=== PATIENT | male | born 1970 | race Hispanic/Latino ===

== ENCOUNTER 2022-05-23 16:08 | Outpatient (CLI) | payer BC | END 2022-05-23 16:09 | disposition home or self-care (01) | LOC: BICRAD 16:08 | PROVIDERS: ATTEND Family Medicine | DX: Z01.818 Encounter for other preprocedural examination (principal) | CPT/HCPCS: 71046 ==

== ENCOUNTER 2022-05-30 08:48 | Outpatient (CLI) | payer SELFPAY | END 2022-05-30 08:49 | disposition home or self-care (01) | LOC: LABBT 08:48 | PROVIDERS: ATTEND Surgery | DX: E66.01 Morbid (severe) obesity due to excess calories (principal); Z20.822 Contact with and (suspected) exposure to COVID-19 | CPT/HCPCS: 87811 ==

== ENCOUNTER 2022-05-30 09:15 | Inpatient (IN) | payer SELFPAY ==
[2022-06-04] MEDS ORDERED: Heparin 5,000 UNITS/ML VIAL ONE (06:32)
[2022-06-04] MEDS ORDERED: Bupivacaine/Epinephrine 0.25% 30 ML VIAL ONE (06:49)
[2022-06-04] MEDS ORDERED: Dexmedetomidine 200 MCG/2 ML VIAL ONE (07:02)
[2022-06-04] MEDS ORDERED: fentaNYL Citrate/PF 100 MCG/2 ML SYRINGE ONE (07:02)
[2022-06-04] MEDS ORDERED: Rocuronium Bromide 10 MG/ML (10ML VIAL) ONE (07:20)
[2022-06-04] MEDS ORDERED: Ondansetron PF 4 MG/2 ML Vial ONE (07:20)
[2022-06-04] MEDS ORDERED: Dexamethasone 20 MG/5 ML VIAL ONE (07:20)
[2022-06-04] MEDS ORDERED: PROPOFOL 200 MG/20 ML VIAL ONE (07:20)
[2022-06-04] MEDS ORDERED: CEFAZOLIN 2 GM VIAL ONE (07:24)
[2022-06-04] MEDS ORDERED: Sodium Chloride 0.9% 100 ML ONE (07:24)
[2022-06-04] MEDS ORDERED: SUGAMMADEX SODIUM 200 MG/2 ML VIAL ONE (08:15)
[2022-06-04] MEDS ORDERED: Dextrose 5% in Water 1,000 ML IV PRN (09:04)
[2022-06-04] MEDS ORDERED: diphenhydrAMINE 50 MG/ML VIAL IVP PRN ×2 (09:04→09:19)
[2022-06-04] MEDS ORDERED: Dextrose 50% Abboject 50 ML SYRINGE SLOW IVP PRN (09:04)
[2022-06-04] MEDS ORDERED: Ondansetron PF 4 MG/2 ML Vial IVP PRN ×2 (09:04→09:19)
[2022-06-04] MEDS ORDERED: hydrALAZINE 20 MG/ML VIAL SLOW IVP PRN (09:04)
[2022-06-04] MEDS ORDERED: Promethazine HCl 25 MG/ML VIAL IM PRN ×3 (09:04→09:19)
[2022-06-04] MEDS ORDERED: diphenhydrAMINE 50 MG/ML VIAL IM PRN (09:19)
[2022-06-04] MEDS ORDERED: Naloxone HCl 0.4 mg/ml Vial IV PRN (09:19)
[2022-06-04] MEDS ORDERED: Ondansetron HCl/PF 4 MG/2 ML Vial IVP PRN (09:19)
[2022-06-04] MEDS ORDERED: Promethazine HCl 25 MG/ML VIAL IVPB PRN (09:19)
[2022-06-04] MEDS ORDERED: diphenhydrAMINE 25 MG CAP PO PRN (09:19)
[2022-06-04] MEDS ORDERED: Meperidine HCl/PF 25 MG/ML VIAL SLOW IVP PRN (09:19)
[2022-06-04] MEDS ORDERED: Zolpidem Tartrate 5 MG TAB PO PRN (09:19)
[2022-06-04] MEDS ORDERED: fentaNYL Citrate/PF 2,000 MCG in Sodium Chloride 0.9% 60 ML IV PRN (09:19)
[2022-06-04] MEDS ORDERED: Communication Order-Pharmacy FS SCH (09:30)
[2022-06-04] MEDS ORDERED: Pantoprazole 40 MG VIAL IVP SCH (09:45)
[2022-06-04] MEDS: D5 1/2 NS w/20 mEq KCL 1,000 ML IV SCH ×3 (11:45→23:23)
[2022-06-04 17:16] VITALS: BMI 40.1
[2022-06-05] MEDS: Hydrocodone-Acetamin 15 ML UDCUP PO PRN ×2 (05:48→10:10)
[2022-06-05 05:56] LABS: #Lymphocytes 1.8 thou/uL (1.20-3.40); #Neutrophils 7.1 thou/uL (1.40-6.50); %Basophils 0.1 % (0.0-1.0); %Eosinophils 0.4 % (0.0-10.0); %Monocytes 9.8 % (0.0-10.0); %Neutrophils 71.8 % (42.0-75.0); Hemoglobin 14.9 g/dL (14.0-18.0); Mean Corpuscular HGB CONC 34.6 g/dL (32.0-36.0); Mean Corpuscular Hemoglobin 31.8 pg (27.0-31.0); Mean Platelet Volume 7.8 fL (7.4-10.4); Platelet Count 206 thou/uL (130-400); RBC Distribution Width 11.6 % (11.5-14.5); Red Blood Cell (RBC) Count 4.69 mill/uL (4.70-6.10); White Blood Cell (WBC) Count 9.9 thou/uL (4.8-10.8)
[2022-06-05 06:18] LABS: Anion Gap 15 mmol/L (10-20); BUN (Urea Nitrogen) 6 mg/dL (8.4-25.7); Calc. Creatinine Clearance 179 mL/min (70-130); Calcium 8.7 mg/dL (7.8-10.44); Carbon Dioxide 21 mmol/L (22-29); Chloride 104 mmol/L (98-107); Estimated GFR 105; Glucose 113 mg/dL (70-105); Potassium 3.9 mmol/L (3.5-5.1); Sodium 136 mmol/L (136-145)
[2022-06-05 07:57] VITALS: BP 147/87; TEMP 98.1
[2022-06-05] MEDS: D5 1/2 NS w/20 mEq KCL 1,000 ML IV SCH (08:19)
[2022-06-05] MEDS ORDERED: Pantoprazole 40 MG VIAL IVP SCH (09:00)
[2022-06-05] MEDS ORDERED: Enoxaparin Sodium 40 MG/0.4 ML SYRINGE SC SCH (09:00)
== END 2022-06-05 11:04 | disposition home or self-care (01) | DRG 621 ==
LOC: SURG A 06-04 06:00
PROVIDERS: ADMIT Surgery; ATTEND Surgery
PROC: 0DB64Z3 Excision of Stomach, Percutaneous Endoscopic Approach, Vertical (ICD-10-PCS; principal; 2022-06-04)
PROC: 8E0W4CZ Robotic Assisted Procedure of Trunk Region, Percutaneous Endoscopic Approach (ICD-10-PCS; 2022-06-04)
DX: E66.01 Morbid (severe) obesity due to excess calories (principal); Z68.41 Body mass index [BMI] 40.0-44.9, adult; Z20.822 Contact with and (suspected) exposure to COVID-19; G47.33 Obstructive sleep apnea (adult) (pediatric); Z79.899 Other long term (current) drug therapy; Z80.0 Family history of malignant neoplasm of digestive organs; Z82.49 Family history of ischemic heart disease and other diseases of the circulatory system
CPT/HCPCS: 36415; 80048; 85025; 88307; 88342; C9113; J0690; J1100; J1644; J1650; J2405; J2704; J3480; J3490

== ENCOUNTER 2022-05-30 11:36 | Outpatient (CLI) | payer BC | END 2022-05-30 11:37 | disposition home or self-care (01) | LOC: DTY/OP 11:36 | PROVIDERS: ATTEND Surgery | DX: E66.01 Morbid (severe) obesity due to excess calories (principal) | CPT/HCPCS: 97802 ==

== ENCOUNTER 2025-05-20 15:37 | Outpatient (CLI) | payer OTHER | END 2025-05-20 15:38 | disposition home or self-care (01) | LOC: BICRAD 15:37 | PROVIDERS: ATTEND Family Medicine | DX: M77.8 Other enthesopathies, not elsewhere classified (principal) ==

== ENCOUNTER 2025-06-28 13:26 | Outpatient (CLI) | payer OTHER | END 2025-06-28 13:27 | disposition home or self-care (01) | LOC: SCSMRI 13:26 | PROVIDERS: ATTEND Family Medicine | DX: S69.91XA Unspecified injury of right wrist, hand and finger(s), initial encounter (principal); S53.21XA Traumatic rupture of right radial collateral ligament, initial encounter; M89.9 Disorder of bone, unspecified; R60.0 Localized edema ==